=== PATIENT | female | born 1950 | race Hispanic/Latino ===

== ENCOUNTER 2018-11-23 14:05 | Emergency (ER) | payer MEDICARE, OTHER ==
[2018-11-23] MEDS ORDERED: SODIUM CHLORIDE 0.9% 1000ML 1,000 ML IV ONE (14:38)
[2018-11-23 14:44] LABS: APPEARANCE,URINE Clear (CLEAR); BILIRUBIN,URINE Negative (NEGATIVE); COLOR,URINE Yellow (YELLOW); GLUCOSE, URINE (UA) Negative (NEGATIVE); KETONES,URINE Negative (NEGATIVE); LEUKOCYTE ESTERASE ,URINE Small (NEGATIVE); NITRATE,URINE Negative (NEGATIVE); OCCULT BLOOD,URINE Small (NEGATIVE); PROTEIN,URINE POS 1+ mg/dL (NEGATIVE); UROBILINOGEN,URINE 0.2 mg/dL (0.2-1.0)
[2018-11-23 15:08] LABS: BACTERIA,URINE Few /HPF (None Seen); RBC,URINE None Seen /HPF (0-1)
[2018-11-23] MEDS ORDERED: LEVOFLOXACIN 500 MG/D5W 100 ML 100 ML ONE (15:26)
[2018-11-23 15:41] LABS: BASOPHILS % (AUTO) 0.4 % (0.0-5.0); EOSINOPHILS % (AUTO) 0.2 % (0.0-8.0); HEMATOCRIT 34.8 % (36-48); LYMPHOCYTES % (AUTO) 16.4 % (21.0-51.0); MEAN CORPUSCULAR HGB CONC 32.8 g/dL (32.0-36.0); MEAN CORPUSCULAR VOLUME 85.3 fL (79-99); MONOCYTES % (AUTO) 12.6 % (3.0-13.0); NEUTROPHILS % (AUTO) 70.4 % (40.0-77.0); PLATELET COUNT (AUTO) 189 K/uL (130-400); RED BLOOD CELL COUNT(AUTO) 4.07 MIL/uL (4.00-5.50); WHITE BLOOD COUNT (AUTO) 9.5 K/uL (4.8-10.8)
[2018-11-23 15:48] LABS: CREATININE 1.2 mg/dL (0.5-1.5); POTASSIUM 3.9 mmol/L (3.5-5.1)
== END 2018-11-23 16:09 | disposition home or self-care (01) ==
LOC: EDH 14:05
DX: N39.0 Urinary tract infection, site not specified (principal); E11.9 Type 2 diabetes mellitus without complications
CPT/HCPCS: 36415; 71045; 80048; 81001; 83605; 85025; 87040 ×2; 87077 ×2; 87088; 87186 ×2; 87804 ×2; 96365; 99285; J1956; J7030

== ENCOUNTER 2018-12-04 12:03 | Inpatient (IN) | payer MEDICARE, OTHER ==
[~2018-12-04] VITALS: Ht 167.6 cm; Wt 90.8 kg
[2018-12-04] MEDS ORDERED: LACTULOSE 20 GM/30 ML UDCUP PO PRN (13:30)
[2018-12-04] MEDS ORDERED: ONDANSETRON HCL 4 MG/2 ML VIAL IV PRN (13:30)
[2018-12-04] MEDS ORDERED: ACETAMINOPHEN 325 MG TAB PO PRN ×2 (13:30)
[2018-12-04] MEDS ORDERED: HYDRALAZINE HCL 20 MG/ML VIAL IV PRN (13:30)
[2018-12-04] MEDS ORDERED: SODIUM CHLORIDE 0.9% 100 ML IV ONE (14:47)
[2018-12-04] MEDS ORDERED: MEROPENEM 500 MG VIAL ONE (14:47)
[2018-12-04] MEDS ORDERED: SODIUM CHLORIDE 0.9% 1000ML 1,000 ML IV ONE ×2 (14:47→17:28)
[2018-12-04 15:04] LABS: APPEARANCE,URINE Clear (CLEAR); BILIRUBIN,URINE Negative (NEGATIVE); COLOR,URINE Yellow (YELLOW); GLUCOSE, URINE (UA) Negative (NEGATIVE); KETONES,URINE Negative (NEGATIVE); LEUKOCYTE ESTERASE ,URINE Small (NEGATIVE); NITRATE,URINE Negative (NEGATIVE); OCCULT BLOOD,URINE Negative (NEGATIVE); PROTEIN,URINE Negative (NEGATIVE); UROBILINOGEN,URINE 0.2 mg/dL (0.2-1.0)
[2018-12-04 15:19] LABS: BASOPHILS % (AUTO) 0.7 % (0.0-5.0); HEMATOCRIT 32.2 % (36-48); LYMPHOCYTES % (AUTO) 36.3 % (21.0-51.0); MEAN CORPUSCULAR HEMOGLOBIN 28.6 pg (27.0-33.0); MEAN CORPUSCULAR HGB CONC 33.1 g/dL (32.0-36.0); MEAN CORPUSCULAR VOLUME 86.4 fL (79-99); MONOCYTES % (AUTO) 9.3 % (3.0-13.0); NEUTROPHILS % (AUTO) 52.7 % (40.0-77.0); NUCLEATED RED BLOOD CELLS 0.1 % (0.0-0.19); PLATELET COUNT (AUTO) 369 K/uL (130-400); RED BLOOD CELL COUNT(AUTO) 3.72 MIL/uL (4.00-5.50); RED CELL DISTRIBUTION WIDTH 19.8 % (11.0-15.5); WHITE BLOOD COUNT (AUTO) 6.7 K/uL (4.8-10.8)
[2018-12-04 15:22] LABS: BACTERIA,URINE Rare /HPF (None Seen); RBC,URINE None Seen /HPF (0-1)
[2018-12-04 15:42] LABS: ALANINE AMINOTRANSFERASE 31 U/L (12-78); ALBUMIN 2.9 g/dL (3.5-5.0); ASPARTATE AMINOTRANSFERASE 38 U/L (10-37); BILIRUBIN,TOTAL 0.3 mg/dL (0.2-1.0); CARBON DIOXIDE 28 mmol/L (21-32); CHLORIDE 106 mmol/L (101-111); CREATINE KINASE, TOTAL 91 U/L (21-232); CREATININE 1.2 mg/dL (0.5-1.5); GLOMERULAR FILTR. RATE CALC 47 mL/min (>60); GLUCOSE,RANDOM 94 mg/dL (70-105); MYOGLOBIN 71 ng/mL (10-92); PHOSPHORUS 3.3 mg/dL (2.5-4.9); POTASSIUM 4.4 mmol/L (3.5-5.1); SODIUM SERUM 140 mmol/L (136-145); TOTAL PROTEIN, SERUM 7.1 g/dL (6.0-8.3); TROPONIN I < 0.04 ng/mL (0.00-0.06); UREA NITROGEN, BLOOD 24 mg/dL (7-18)
[2018-12-04 15:49] LABS: HEMOGLOBIN A1C 6.5 % (4.0-6.0)
[2018-12-04 16:29] LABS: ERYTHROCYTE SEDIMENTATION RATE 35 MM/HR (0-30)
[2018-12-04] MEDS: INSULIN HUMULIN R 100 UNIT/ML 3ML SQ SCH ×2 (21:00→22:00)
[2018-12-04] MEDS: FAMOTIDINE/PF 20 MG/2 ML VIAL IV SCH (21:00)
[2018-12-04] MEDS ORDERED: FAMOTIDINE/PF 20 MG/2 ML VIAL IV ONE (21:03)
[2018-12-04 21:30] VITALS: BP 129/74
[2018-12-04] MEDS: SODIUM CHLORIDE 0.9% 1000ML 1,000 ML IV SCH ×2 (22:00→22:44)
[2018-12-04] MEDS: MEROPENEM 500 MG VIAL IV SCH ×2 (22:00→22:43)
[2018-12-05] VITALS (7 sets, daily range): BP systolic 109–135; BP diastolic 51–73
[2018-12-05] MEDS: INSULIN HUMULIN R 100 UNIT/ML 3ML SQ SCH ×4 (06:29→21:00)
[2018-12-05] MEDS: MEROPENEM 500 MG VIAL IV SCH ×3 (06:34→22:03)
[2018-12-05] MEDS: FAMOTIDINE/PF 20 MG/2 ML VIAL IV SCH ×2 (09:09→22:02)
[2018-12-05] MEDS: ENOXAPARIN SODIUM 40 MG/0.4 ML SYRINGE SQ SCH (09:10)
[2018-12-05] MEDS: SODIUM CHLORIDE 0.9% 1000ML 1,000 ML IV SCH (09:29)
--- NOTE | 2018-12-05 12:24 | NUR ---
ELIZABETH Lacy met with pt and cousin. Pt states her cousin lives with her and brother Nicholas Roman is ER contact. Pt reports she is independent of all ADLS, has walker, and cane, no in home care services. Pt states doctor told her she was going somewhere else for 2weeks of antibiotics. pt states she does not want to go to a [place]. Sw informed CM who will follow up with pt for dcp. Addendum: 12/05/18 at 1228 by KATIE GONGORA Amended: Links added.
--- NOTE | 2018-12-05 16:09 | NUR ---
CM Note: [facility] pending acceptance CM met with pt discussed receverardo for short term placement pt will need abx iv, pt agreeable, CHARLA signed for [facility]. Faxed order, clinicals, and pasrr. Spoke to Mildred, will come eval pt. Pt pending acceptance, will need need to complete 3MN prior to transfer, will be safe to transver via [facility] transport van on Sat once accepted. Primary nurse aware. CM to cont to follow up.
[2018-12-06 04:20] VITALS: BP 111/63
[2018-12-06 05:11] LABS: BASOPHILS % (AUTO) 1.1 % (0.0-5.0); EOSINOPHILS % (AUTO) 1.4 % (0.0-8.0); HEMATOCRIT 33.5 % (36-48); LYMPHOCYTES % (AUTO) 40.5 % (21.0-51.0); MEAN CORPUSCULAR HEMOGLOBIN 28.8 pg (27.0-33.0); MEAN CORPUSCULAR HGB CONC 33.7 g/dL (32.0-36.0); MEAN CORPUSCULAR VOLUME 85.5 fL (79-99); MONOCYTES % (AUTO) 8.5 % (3.0-13.0); NEUTROPHILS % (AUTO) 48.5 % (40.0-77.0); PLATELET COUNT (AUTO) 380 K/uL (130-400); RED BLOOD CELL COUNT(AUTO) 3.92 MIL/uL (4.00-5.50); RED CELL DISTRIBUTION WIDTH 20.5 % (11.0-15.5)
[2018-12-06] MEDS ORDERED: LISI2.5T2 PO (05:15)
[2018-12-06] MEDS ORDERED: MONT10TA24 PO (05:15)
[2018-12-06] MEDS ORDERED: OMEP20CA10 PO (05:15)
[2018-12-06] MEDS ORDERED: DICL100T85 PO (05:15)
[2018-12-06 05:32] LABS: CREATININE 0.9 mg/dL (0.5-1.5)
[2018-12-06] MEDS: INSULIN HUMULIN R 100 UNIT/ML 3ML SQ SCH ×4 (05:33→21:00)
[2018-12-06] MEDS: MEROPENEM 500 MG VIAL IV SCH ×3 (05:50→20:18)
[2018-12-06 07:00] VITALS: BP 115/64
[2018-12-06] MEDS: LISINOPRIL 2.5 MG TABLET PO SCH (10:40)
[2018-12-06] MEDS: ENOXAPARIN SODIUM 40 MG/0.4 ML SYRINGE SQ SCH (10:40)
[2018-12-06] MEDS: MONTELUKAST SODIUM 10 MG TAB PO SCH (10:40)
[2018-12-06] MEDS: FAMOTIDINE/PF 20 MG/2 ML VIAL IV SCH ×2 (10:40→20:18)
[2018-12-06 11:00] VITALS: BP 123/59
[2018-12-06] MEDS: SODIUM CHLORIDE 0.9% 1000ML 1,000 ML IV SCH ×2 (13:00→22:55)
[2018-12-06 16:00] VITALS: BP 128/83
--- NOTE | 2018-12-06 16:06 | NUR ---
CM Note: [facility]: pending acceptance Spoke to Marilou ramon/[facility]. Received updated clinicals. Pt pending acceptance at this time. Aware pending to complete 3 MN tonight. Ok to transfer via [facility] transport van Sunday once accepted. Primary nurse aware. CM to cont to follow up.
--- NOTE | 2018-12-06 16:41 | NUR ---
CM Note: [facility] acceptance Spoke to Marilou ramon/[facility]. Pt has acceptance, need to complete 3rd MN tonight, ok to transfer tomorrow via [facility] transport van. Primary nurse aware. CM to cont to follow up.
[2018-12-06 19:45] VITALS: BP 140/61
[2018-12-06 23:44] VITALS: BP 115/65
[2018-12-07 03:40] VITALS: BP 119/66
[2018-12-07] MEDS: MEROPENEM 500 MG VIAL IV SCH (05:08)
[2018-12-07 05:13] LABS: BASOPHILS % (AUTO) 0.8 % (0.0-5.0); EOSINOPHILS % (AUTO) 0.8 % (0.0-8.0); HEMATOCRIT 31.3 % (36-48); LYMPHOCYTES % (AUTO) 29.7 % (21.0-51.0); MEAN CORPUSCULAR HGB CONC 34.2 g/dL (32.0-36.0); MEAN CORPUSCULAR VOLUME 84.6 fL (79-99); MONOCYTES % (AUTO) 9.2 % (3.0-13.0); NEUTROPHILS % (AUTO) 59.5 % (40.0-77.0); PLATELET COUNT (AUTO) 370 K/uL (130-400); RED CELL DISTRIBUTION WIDTH 20.1 % (11.0-15.5); WHITE BLOOD COUNT (AUTO) 7.1 K/uL (4.8-10.8)
[2018-12-07 05:24] LABS: CREATININE 0.9 mg/dL (0.5-1.5)
[2018-12-07 05:41] LABS: PARTIAL THROMBOPLASTIN TIME 28.3 SEC (26.3-35.5); PROTHROMBIN TIME 10.5 SEC (9.6-11.6)
[2018-12-07] MEDS: INSULIN HUMULIN R 100 UNIT/ML 3ML SQ SCH ×2 (06:43→11:30)
[2018-12-07 08:21] VITALS: BP 101/67
--- NOTE | 2018-12-07 10:00 | NUR ---
REJI AGUILAR: Spoke w Mildred this morning to discuss status of referral. She mentions that pt has been accepted and bed avail today. She also mentions that [facility] is able to insert PICC line at their facility as long as pt goes w order for insertion. Primary nurse/charge nurse and CHAIR PAD MAKER updated.
[2018-12-07 11:25] VITALS: BP 121/62
[2018-12-07] MEDS ORDERED: MEROPENEM 1 GM VIAL IVP SCH (11:45)
[2018-12-07] MEDS: MONTELUKAST SODIUM 10 MG TAB PO SCH (12:37)
[2018-12-07] MEDS: LISINOPRIL 2.5 MG TABLET PO SCH (12:37)
[2018-12-07] MEDS: ENOXAPARIN SODIUM 40 MG/0.4 ML SYRINGE SQ SCH (12:38)
[2018-12-07] MEDS: FAMOTIDINE/PF 20 MG/2 ML VIAL IV SCH (12:44)
--- NOTE | 2018-12-07 14:12 | NUR ---
report given to lisa mckenzie lvn of [facility]. all questions are answered patient is ready to be transfer.
== END 2018-12-07 15:00 | DRG 872 ==
LOC: EDH 12:03 → EDHIP 12:23 → 3CH 20:02
PROVIDERS: ADMIT Internal Medicine; ATTEND Internal Medicine
DX: A41.51 Sepsis due to Escherichia coli [E. coli] (principal); N39.0 Urinary tract infection, site not specified; E11.9 Type 2 diabetes mellitus without complications; I10 Essential (primary) hypertension; D64.9 Anemia, unspecified; E78.2 Mixed hyperlipidemia; J45.909 Unspecified asthma, uncomplicated; N20.0 Calculus of kidney; Z16.12 Extended spectrum beta lactamase (ESBL) resistance; Z16.24 Resistance to multiple antibiotics; Z96.653 Presence of artificial knee joint, bilateral; Z96.642 Presence of left artificial hip joint; Z83.3 Family history of diabetes mellitus
CPT/HCPCS: 36415; 76770; 80048; 80053; 81001; 82550; 82948; 83036; 83605; 83735; 83874; 84100; 84484; 85025; 85610; 85651; 85730; 86140; 87040; 87077; 87088; 87186; G0378; J1650; J2185; J3490; J7030

== ENCOUNTER → 2020-10-12 | Outpatient (CLI) | payer MEDICARE ==
[~2020-10-12] MED LIST: CETI10TA86 PO; DICL100T85 PO; LISI2.5T2 PO; METF-444 PO; MONT10TA32 PO; OMEP20CA12 PO
== END | disposition home or self-care (01) ==
LOC: RAH 09:26
PROVIDERS: ATTEND Family Medicine
DX: Z12.31 Encounter for screening mammogram for malignant neoplasm of breast (principal)
CPT/HCPCS: 77067

== ENCOUNTER 2021-02-19 16:21 | Emergency (ER) | payer MEDICARE ==
[~2021-02-19] VITALS: Ht 167.6 cm; Wt 100.7 kg
[~2021-02-19 16:21] MED LIST changes: +LISI2.5T13 PO; -LISI2.5T2 PO
[2021-02-19 16:33] VITALS: BP 138/54
[2021-02-19 17:33] VITALS: BP 130/69
[2021-02-19 18:08] LABS: BASOPHILS % (AUTO) 0.3 % (0.0-5.0); EOSINOPHILS % (AUTO) 0.1 % (0.0-8.0); LYMPHOCYTES % (AUTO) 6.1 % (21.0-51.0); MEAN CORPUSCULAR HEMOGLOBIN 31.4 pg (27.0-33.0); MEAN CORPUSCULAR HGB CONC 33.1 g/dL (32.0-36.0); MEAN CORPUSCULAR VOLUME 94.6 fL (79-99); MONOCYTES % (AUTO) 6.4 % (3.0-13.0); NEUTROPHILS % (AUTO) 86.6 % (40.0-77.0); PLATELET COUNT (AUTO) 175 K/uL (130-400); RED CELL DISTRIBUTION WIDTH 13.5 % (11.0-15.5); WHITE BLOOD COUNT (AUTO) 15.2 K/uL (4.8-10.8)
[2021-02-19 18:32] LABS: ALBUMIN 2.9 g/dL (3.5-5.0); BILIRUBIN,TOTAL 0.7 mg/dL (0.2-1.0); CREATININE 0.8 mg/dL (0.5-1.5); POTASSIUM 4.4 mmol/L (3.5-5.1); TOTAL PROTEIN, SERUM 6.5 g/dL (6.0-8.3)
[2021-02-19 19:48] VITALS: BP 118/52
[2021-02-19 20:19] LABS: APPEARANCE,URINE Clear (CLEAR); BILIRUBIN,URINE Negative (NEGATIVE); COLOR,URINE Yellow (YELLOW); GLUCOSE, URINE (UA) Negative (NEGATIVE); KETONES,URINE 40 mg/dL (NEGATIVE); LEUKOCYTE ESTERASE ,URINE Small (NEGATIVE); NITRATE,URINE Negative (NEGATIVE); OCCULT BLOOD,URINE Moderate (NEGATIVE); PH,URINE 5.5 (5.0-8.0); PROTEIN,URINE Negative (NEGATIVE); UROBILINOGEN,URINE 0.2 mg/dL (0.2-1.0)
[2021-02-19] MEDS ORDERED: CEFTRIAXONE 1G VIAL IVP ONE (20:30)
[2021-02-19] MEDS ORDERED: CEFTRIAXONE 1G VIAL ONE (20:39)
[2021-02-19 20:47] LABS: RBC,URINE 0-1 /HPF (0-1)
[2021-02-19 20:48] LABS: BACTERIA,URINE Moderate /HPF (None Seen); SQUAMOUS EPITHELIAL CELL,UR Few /HPF (0-2)
[2021-02-19 20:50] VITALS: BP 117/58
[2021-02-19] MEDS ORDERED: PHEN-847 PO (21:40)
[2021-02-19] MEDS ORDERED: CEFU500T67 PO (21:40)
[2021-02-19 21:45] VITALS: BP 111/49
== END 2021-02-19 22:20 | disposition home or self-care (01) ==
LOC: EDH 16:21
DX: N39.0 Urinary tract infection, site not specified (principal); Z20.822 Contact with and (suspected) exposure to COVID-19; E11.9 Type 2 diabetes mellitus without complications; E78.00 Pure hypercholesterolemia, unspecified; M19.90 Unspecified osteoarthritis, unspecified site; Z79.84 Long term (current) use of oral hypoglycemic drugs; Z79.899 Other long term (current) drug therapy; Z88.1 Allergy status to other antibiotic agents; Z98.84 Bariatric surgery status
CPT/HCPCS: 36415; 71045; 80053; 81001; 84484; 85025; 87077; 87088; 87186; 87635; 87804 ×2; 93005; 96374; 99285; C9803; J0696

== ENCOUNTER → 2023-05-10 | Outpatient (CLI) | payer MEDICARE ==
[~2023-05-10] MED LIST changes: +ALBU8.5H8 IH; +ASPI-1443 PO; +AZIT250T9 PO; +CEFD300C3 PO; -CETI10TA86 PO; +METH1POW MC; +METHI10 PO; +METO25 PO; +MONT-39 PO; -MONT10TA32 PO; -OMEP20CA12 PO; +PANT40TA PO; +PRED10TA3 PO; +PRED20TA3 PO; +SERT-438 PO
== END | disposition home or self-care (01) ==
LOC: RAH 08:08
PROVIDERS: ATTEND Family Medicine
DX: Z12.31 Encounter for screening mammogram for malignant neoplasm of breast (principal)
CPT/HCPCS: 77067

== ENCOUNTER 2023-12-06 04:02 | Emergency (ER) | payer MEDICARE ==
[~2023-12-06] VITALS: Ht 165.1 cm; Wt 93.0 kg
[2023-12-06 04:27] LABS: BASOPHILS # (AUTO) 0.01 K/uL (0.00-0.20); BASOPHILS % (AUTO) 0.1 % (0.0-5.0); HEMATOCRIT 41.5 % (36-48); IMMATURE GRANULOCYTE ABSOLUTE 0.05 K/uL (0-1); LYMPHOCYTES # (AUTO) 0.8 K/uL (1.0-4.8); LYMPHOCYTES % (AUTO) 7.5 % (21.0-51.0); MEAN CORPUSCULAR HEMOGLOBIN 31.1 pg (27.0-33.0); MEAN CORPUSCULAR HGB CONC 33.5 g/dL (32.0-36.0); MEAN CORPUSCULAR VOLUME 92.8 fL (79-99); MONOCYTES # (AUTO) 0.7 K/uL (0.1-1.0); MONOCYTES % (AUTO) 6.2 % (3.0-13.0); NEUTROPHILS # (AUTO) 9.5 K/uL (1.8-7.7); NEUTROPHILS % (AUTO) 85.7 % (40.0-77.0); PLATELET COUNT (AUTO) 124 K/uL (130-400); RED BLOOD CELL COUNT(AUTO) 4.47 MIL/uL (4.00-5.50); RED CELL DISTRIBUTION WIDTH 14.7 % (11.0-15.5); WHITE BLOOD COUNT (AUTO) 11.1 K/uL (4.8-10.8)
[2023-12-06 04:35] LABS: RAPID GROUP A STREP negative (NEGATIVE)
[2023-12-06 04:39] LABS: SARS-CoV-2, RNA, NAAT NEGATIVE SARS CoV-2 (NEGATIVE)
[2023-12-06 04:43] LABS: CREATININE 1.3 mg/dL (0.5-1.0); INFLUENZA TYPE A Negative For Type A (NEGATIVE); INFLUENZA TYPE B Negative For Type B (NEGATIVE); POTASSIUM 3.8 mmol/L (3.5-5.1)
[2023-12-06 04:48] LABS: INR 1.04 (0.85-1.15)
[2023-12-06 04:51] LABS: ALBUMIN 3.3 g/dL (3.5-5.0); BILIRUBIN,TOTAL 1.1 mg/dL (0.2-1.0); TOTAL PROTEIN, SERUM 7.1 g/dL (6.0-8.3)
[2023-12-06] MEDS: 0.9%NACL 1000ML 1,000 ML IV ONE (06:13)
[2023-12-06 06:24] VITALS: BP 121/85; PULSE 85; RESP 19; O2SAT 98
[2023-12-06 06:27] LABS: BILIRUBIN,URINE NEGATIVE (NEGATIVE); COLOR,URINE YELLOW (YELLOW); GLUCOSE, URINE (UA) NEGATIVE (NEGATIVE); KETONES,URINE 10 mg/dL (NEGATIVE); LEUKOCYTE ESTERASE ,URINE 500 Leu/uL (NEGATIVE); NITRATE,URINE 2+ (NEGATIVE); OCCULT BLOOD,URINE SMALL (NEGATIVE); PH,URINE 5.5 (5.0-8.0); PROTEIN,URINE 20 mg/dL (NEGATIVE); UROBILINOGEN,URINE 0.2 mg/dL (0.2-1.0)
[2023-12-06 06:31] LABS: ADD UA MICROSCOPIC YES; APPEARANCE,URINE SLIGHTLY CLOUDY (CLEAR)
[2023-12-06 06:34] LABS: BACTERIA,URINE MANY /HPF (None Seen); MUCUS,URINE RARE LPF (None Seen); SQUAMOUS EPITHELIAL CELL,UR RARE /HPF (0-2); WBC,URINE 51-100 /HPF (0-1)
[2023-12-06] MEDS ORDERED: CEPH500B PO (06:37)
[2023-12-07] MEDS ORDERED: OXYB-66 PO (04:42)
[2023-12-07] MEDS ORDERED: MULT-1367 PO (04:42)
[2023-12-07] MEDS ORDERED: CALC-877 PO (04:42)
[2023-12-07] MEDS ORDERED: BENZ200C53 PO (04:42)
[2023-12-07] MEDS ORDERED: BIOT10005 PO (04:42)
[2023-12-07] MEDS ORDERED: ACET-2743 PO (04:42)
[2023-12-07] MEDS ORDERED: INSLAN SQ (04:42)
[2023-12-07] MEDS ORDERED: ERGO500093 PO (04:42)
[2023-12-07] MEDS ORDERED: ASCO100031 PO (04:42)
[2023-12-07] MEDS ORDERED: DOXY100C5 PO (04:42)
[2023-12-10] MEDS ORDERED: SULF1TAB42 PO (10:04)
== END 2023-12-06 06:56 | disposition home or self-care (01) ==
LOC: EDH 04:02
DX: N39.0 Urinary tract infection, site not specified (principal); E86.0 Dehydration; E11.9 Type 2 diabetes mellitus without complications; D64.9 Anemia, unspecified; Z20.822 Contact with and (suspected) exposure to COVID-19; Z79.82 Long term (current) use of aspirin; Z79.84 Long term (current) use of oral hypoglycemic drugs; Z79.899 Other long term (current) drug therapy; Z98.890 Other specified postprocedural states; Z88.1 Allergy status to other antibiotic agents
CPT/HCPCS: 99285; 76705; 71045; 87635; 82150; 82550; 84484; 80053; 83880; 83690; 85025; 85610; 87086 ×3; 87186 ×2; 87880; 87804 ×2; 81001; 36415; 93005; J7030

== ENCOUNTER → 2024-01-14 | Outpatient (CLI) | payer MEDICARE ==
[~2024-01-14] MED LIST changes: +ACET-2743 PO; +ASCO100031 PO; -AZIT250T9 PO; +BENZ200C53 PO; +BIOT10005 PO; +CALC-877 PO; -CEFD300C3 PO; +ERGO500093 PO; +INSLAN SQ; -METF-444 PO; -METH1POW MC; -METHI10 PO; -METO25 PO; +MULT-1367 PO; +OXYB-66 PO; -PANT40TA PO; -PRED10TA3 PO; -PRED20TA3 PO; +SULF1TAB42 PO
== END | disposition home or self-care (01) ==
LOC: RAH 14:17
PROVIDERS: ATTEND Family Medicine
DX: I35.0 Nonrheumatic aortic (valve) stenosis (principal); R01.1 Cardiac murmur, unspecified
CPT/HCPCS: 93306

== ENCOUNTER 2024-05-19 10:41 | Emergency (ER) | payer MEDICARE, OTHER ==
[~2024-05-19] VITALS: Ht 165.1 cm; Wt 89.8 kg
--- NOTE | 2024-05-19 12:07 | HMCIMG ---
RIBS UNI RT W PA CHEST 3+ VWS REASON: Fall, pain TECHNIQUE: 5 views were obtained. FINDINGS: PA chest x-ray shows clear lungs. Heart, mediastinum and bony thorax appear normal. Right rib series images show normal findings. There are no fractures. Soft tissues appear unremarkable. IMPRESSION: 1. Negative PA chest x-ray with prior series.
--- NOTE | 2024-05-19 12:08 | HMCIMG ---
Exam: AP pelvis and right hip 3 views. Reason: Pain, trauma. FINDINGS: AP pelvis shows normal findings. There are no pelvic bone fractures. There is a total hip joint prosthesis on the left. Additional views show normal appearance of the proximal right femur. Joint space appears preserved. IMPRESSION: 1. No acute finding on AP pelvis and right hip views.
--- NOTE | 2024-05-19 12:09 | HMCIMG ---
FEMUR 2VW RIGHT REASON: Fall, pain TECHNIQUE: 4 views were obtained. FINDINGS: There is no evidence of fracture or dislocation. There is no joint effusion. The soft tissues appear unremarkable. There is no evidence of a radiopaque foreign body. There is a right total knee joint prosthesis in place, hardware appears intact. IMPRESSION: No acute findings.
[2024-05-19] MEDS: morPHINE 2 MG SYG IM ONE (13:40)
--- NOTE | 2024-05-19 13:55 | NUR ---
per aida Doherty there is no need for blood collection as pt does not wish to be admitted to the hospital today
--- NOTE | 2024-05-19 14:22 | ERN ---
General Chief Complaint: Mechanical Fall Stated Complaint: RIGHT RIBS, RT HIP PAIN, FALL Time Seen by MD: 10:47 Time Seen by Midlevel: 10:47 Source: patient History of Present Illness Allergies: Coded Allergies: levofloxacin (Unverified Allergy, Unknown, 12/04/18) Home Meds Active Scripts Sulfamethoxazole/Trimethoprim (Bactrim Ds Tablet) 800 Mg-160 Mg Tablet, 1 TAB PO DAILY for 7 Days, #7 TAB Prov:GABRIELLA MORE [employer] 12/10/23 Reported Medications Biotin (Biotin) 10,000 Mcg Capsule, 43684 MCG PO AM, CAP 12/07/23 Calcium Carbonate/Vitamin D3 (Calcium 500 + D Tablet) 500 Mg Calcium-10 Mcg (400 Unit) Tablet, 1 EACH PO BID, TAB 12/07/23 Multivitamin (Multivitamin) 1 Each Tablet, 1 EACH PO AM, TAB 12/07/23 Insulin Glargine,Hum.rec.anlog (Lantus) 100 Unit/Ml Inj, 12 UNITS SQ AM, ML 12/07/23 Acetaminophen (Tylenol Extra Strength) 500 Mg Tablet, 1000 MG PO Q6HPRN PRN for PAIN LEVEL 4 TO 6, TAB 12/07/23 Benzonatate (Benzonatate) 200 Mg Capsule, 200 MG PO TIDP PRN for COUGH, CAP 12/07/23 Ergocalciferol (Vitamin D2) (Vitamin D2) 1,250 Mcg (24659 Unit) Capsule, 1250 MCG PO AD, CAP 12/07/23 Oxybutynin Chloride (Oxybutynin Chloride ER) 5 Mg Tab.er.24, 5 MG PO HS 12/07/23 Ascorbic Acid (Vitamin C) 1,000 Mg Tablet, 1000 MG PO AM, TAB 12/07/23 Sertraline HCl (Sertraline HCl) 25 Mg Tablet, 25 MG PO DAILY, TAB 09/02/21 Albuterol Sulfate (Proair Hfa) 8.5 Gm Hfa.aer.ad, 2 PUFF IH AD 09/02/21 Aspirin (Aspirin EC) 81 Mg Tablet.dr, 81 MG PO DAILY, TAB 09/02/21 Diclofenac Sodium (Diclofenac Sodium) 100 Mg Tab.er.24h, 100 MG PO DAILY, TAB 09/02/21 Lisinopril (Lisinopril) 2.5 Mg Tablet, 2.5 MG PO DAILY, TAB 09/02/21 Montelukast Sodium (Montelukast Sodium) 10 Mg Tablet, 10 MG PO HS, TAB 09/02/21 Past Medical History Past Medical History: Anemia, Diabetes-Type II Past Surgical History: Cholecystectomy, Other, Bariatric Surgery Surgical History Other: LEFT HIP SX ED Course Orders Procedure Category Date Status Time Femur 2vw Right RAD 05/19/24 Resulted 11:21 Ribs Uni Rt W Pa RAD 05/19/24 Resulted Chest 3+ Vws 11:21 Hip Unilat 2-3vw Right RAD 05/19/24 Resulted 11:21 Morphine 2mg Syg PHA 05/19/24 Complete (Morphine 2mg Syg) 13:30 Current Medications Medications (Trade) Dose Ordered Sig/Saeid Route PRN Reason Start Time Stop Time Status Last Admin Dose Admin Morphine Sulfate (morPHINE 2MG SYG) 2 mg ONCE ONCE IM 05/19/24 13:30 05/19/24 13:31 DC 05/19/24 13:40 Vital Signs Date Time Temp Pulse Resp B/P (MAP) Pulse Ox O2 Delivery O2 Flow Rate FiO2 05/19/24 14:19 97.9 78 18 128/59 99 Room Air* 0 21 05/19/24 13:13 78 18 129/54 98 Room Air* 0 21 05/19/24 10:42 97.9 67 16 120/66 99 Room Air 0 DX & DISP Disposition: Discharge Departure Impression: Primary Impression: Rib contusion Additional Impression: Thigh contusion Condition: Stable Scripts Benzonatate (Tessalon Perles) 100 Mg Cap 100 MG PO TID for cough for 5 Days, #15 CAP 0 Refills Prov: TITUS CONWAY 05/19/24 Additional Instructions: Discharge home. Rest. Follow up with primary care in 24 hours. Return to the ER for any acute changes or worsening symptoms. If any medications were prescribed take as directed. Okay to continue home med ications unless otherwise discussed during your visit in the emergency room today. Patient was also advised to follow-up with primary care physician in 1 to 2 days for continued monitoring. Referrals: RICKEY CHAVEZ MD (PCP) I participated in the following activities of this patient's care: For this patient encounter, I reviewed the PA or ELECTRICAL DISCHARGE MACHINE OPERATOR documentation, treatment plan, and medical decision making. I did not have [id number] time with this patient. I will sign as the reviewing DrJosephine And agree with the treatment plan and disposition. TITUS CONWAY May 19, 2024 14:22
[2024-05-19] MEDS ORDERED: BENZ-39 PO (14:28)
[2024-05-19 14:41] VITALS: BP 135/59; PULSE 78; RESP 18; TEMP 97.9; O2SAT 99
== END 2024-05-19 14:46 | disposition home or self-care (01) ==
LOC: EDH 10:41
DX: S20.211A Contusion of right front wall of thorax, initial encounter (principal); S70.11XA Contusion of right thigh, initial encounter; E11.9 Type 2 diabetes mellitus without complications; Z79.82 Long term (current) use of aspirin; Z79.899 Other long term (current) drug therapy; Z88.1 Allergy status to other antibiotic agents; Z90.49 Acquired absence of other specified parts of digestive tract; W18.39XA Other fall on same level, initial encounter; Y93.89 Activity, other specified; Y92.89 Other specified places as the place of occurrence of the external cause; Y99.8 Other external cause status
CPT/HCPCS: 99284; 73502; 73552; 71101; 96372; J2270

== ENCOUNTER 2025-03-22 16:33 | Emergency (ER) | payer MEDICARE, OTHER ==
[~2025-03-22] VITALS: Ht 165.1 cm; Wt 89.8 kg
[~2025-03-22 16:33] MED LIST changes: -ASCO100031 PO; +ASCO10004 PO; +BENZ-39 PO; -DICL100T85 PO; +DICL100T97 PO
[2025-03-22 16:54] LABS: APPEARANCE,URINE CLEAR (CLEAR); GLUCOSE, URINE (UA) NEGATIVE (NEGATIVE); LEUKOCYTE ESTERASE ,URINE NEGATIVE Leu/uL (NEGATIVE); NITRATE,URINE NEGATIVE (NEGATIVE); OCCULT BLOOD,URINE NEGATIVE (NEGATIVE)
[2025-03-22 16:54] LABS: IMMATURE GRANULOCYTE ABSOLUTE 0.01 K/uL (0-1); NUCLEATED RED BLOOD CELLS 0.0 % (0.0-0.19); PLATELET COUNT (AUTO) 188 K/uL (130-400); RED BLOOD CELL COUNT(AUTO) 4.20 MIL/uL (4.00-5.50); RED CELL DISTRIBUTION WIDTH 21.8 % (11.0-15.5); WHITE BLOOD COUNT (AUTO) 5.3 K/uL (4.8-10.8)
[2025-03-22 16:55] LABS: ADD UA MICROSCOPIC NO
[2025-03-22 17:01] LABS: CREATININE 1.1 mg/dL (0.5-1.0); GLOMERULAR FILTR. RATE CALC 52.0 mL/min (>90); GLUCOSE,RANDOM 144.0 mg/dL (70-105); SODIUM SERUM 140.0 mmol/L (136-145); UREA NITROGEN, BLOOD 21.0 mg/dL (7-18)
[2025-03-22 17:11] LABS: CREATINE KINASE, TOTAL 301.0 U/L (21-232)
--- NOTE | 2025-03-22 17:45 | HMCIMG ---
EXAM: CR Chest, 1 View. CLINICAL HISTORY: cp COMPARISON: None provided. FINDINGS: LUNGS: There is no mass, infiltrate, or acute pulmonary abnormality. PLEURAL SPACES: No pleural effusion or pneumothorax. MEDIASTINUM: The cardiomediastinal silhouette is within normal limits. BONES: No aggressive appearing osseous lesion seen. IMPRESSION: No acute cardiopulmonary pathology is evident. /[place]
--- NOTE | 2025-03-22 18:37 | ERN ---
General Chief Complaint: Chest Pain Stated Complaint: CHEST PAIN Time Seen by MD: 16:36 Time Seen by Midlevel: 16:36 Source: patient History of Present Illness Initial Comments 74-year-old female with a past medical history of type 2 diabetes presents to the emergency department for evaluation of chest pain that started a proximally 3 hours ago. She reports taking one nitroglycerin sublingual with resolution of symptoms. Upon arrival to the emergency department she no longer has chest pain. Denies any other symptoms Allergies: Coded Allergies: levofloxacin (Unverified Allergy, Unknown, 12/04/18) Home Meds Active Scripts Benzonatate (Tessalon Perles) 100 Mg Cap, 100 MG PO TID for cough for 5 Days, #15 CAP 0 Refills Prov:TITUS CONWAY PAC 05/19/24 Sulfamethoxazole/Trimethoprim (Bactrim Ds Tablet) 800 Mg-160 Mg Tablet, 1 TAB PO DAILY for 7 Days, #7 TAB Prov:GABRIELLA MOER VAULT ATTENDANT 12/10/23 Reported Medications Biotin (Biotin) 10,000 Mcg Capsule, 67254 MCG PO AM, CAP 12/07/23 Calcium Carbonate/Vitamin D3 (Calcium 500 + D Tablet) 500 Mg Calcium-10 Mcg (400 Unit) Tablet, 1 EACH PO BID, TAB 12/07/23 Multivitamin (Multivitamin) 1 Each Tablet, 1 EACH PO AM, TAB 12/07/23 Insulin Glargine,Hum.rec.anlog (Lantus) 100 Unit/Ml Inj, 12 UNITS SQ AM, ML 12/07/23 Acetaminophen (Tylenol Extra Strength) 500 Mg Tablet, 1000 MG PO Q6HPRN PRN for PAIN LEVEL 4 TO 6, TAB 12/07/23 Benzonatate (Benzonatate) 200 Mg Capsule, 200 MG PO TIDP PRN for COUGH, CAP 12/07/23 Ergocalciferol (Vitamin D2) (Vitamin D2) 1,250 Mcg (82002 Unit) Capsule, 1250 MCG PO AD, CAP 12/07/23 Oxybutynin Chloride (Oxybutynin Chloride ER) 5 Mg Tab.er.24, 5 MG PO HS 12/07/23 Ascorbic Acid (Vitamin C) 1,000 Mg Tablet, 1000 MG PO AM, TAB 12/07/23 Sertraline HCl (Sertraline HCl) 25 Mg Tablet, 25 MG PO DAILY, TAB 09/02/21 Albuterol Sulfate (Proair Hfa) 8.5 Gm Hfa.aer.ad, 2 PUFF IH AD 09/02/21 Aspirin (Aspirin EC) 81 Mg Tablet.dr, 81 MG PO DAILY, TAB 09/02/21 Diclofenac Sodium (Diclofenac Sodium) 100 Mg Tab.er.24h, 100 MG PO DAILY, TAB 09/02/21 Lisinopril (Lisinopril) 2.5 Mg Tablet, 2.5 MG PO DAILY, TAB 09/02/21 Montelukast Sodium (Montelukast Sodium) 10 Mg Tablet, 10 MG PO HS, TAB 09/02/21 Past Medical History Past Medical History: Arthritis, Asthma, Diabetes-Type II, GERD, Hypertension Past Surgical History: Other Surgical History Other: L HIP REPLACEMENT, BILATERAL KNEE REPLACEMENTS ROS Dictation CONSTITUTIONAL: Negative except for HPI HEAD/FACE: Negative except for HPI EENT: Negative except for HPI RESPIRATORY: Negative except for HPI GASTROINTESTINAL/ABDOMINAL: Negative except for HPI GENITOURINARY: Negative except for HPI MUSCULOSKELETAL: Negative except for HPI INTEGUMENTARY: Negative except for HPI NEUROLOGICAL/PSYCH: Negative except for HPI HEMATOLOGIC/LYMPHATIC: Negative except for HPI All Systems Negative, Except as noted above. 13 point review of systems assessed and all negative except for above. Physical Exam Physical Exam Dictation Vital Signs reviewed General Appearance: Alert, oriented x 3, no acute distress, well developed, nourished. Head and Face: non-traumatic. Eyes: PERRL, pink conjunctivas, eyelid no trauma, anterior chamber with arcus senilis. Ears: Pinnas intact and no signs of trauma or erythema ear canals clear and no discharge TM no erythema Nose: No discharge, no bleeding. Oropharynx: Mouth normal, tongue pink, pharynx clear,no erythema, tonsils no exudates, no abscesses noted, mucous membrane moist Neck: Supple, non-tender, no thyromegaly, no masses, no JVD, no bruits Breast:Deferred Chest:No tenderness, no crepitus, no paradoxical movement, no retractions Lungs:Clear, well-ventilated, symmetric, no rales, no wheezing, no rhonchi, no stridor, good breath sounds bilaterally Heart: Regular rate, regular rhythm, no murmur, no gallops Vascular: no peripheral edema, Abdomen: Soft, positive bowel sounds, nondistended, no guarding, nontender, no rebound, no masses no hepatomegaly, no splenomegaly, no Tang's sign, no hernias. Rectal: Deferred Genital: Deferred Neurological: Normal speech, motor function intact, sensory function intact Musculoskeletal: Neck nontender, full range of motion, back nontender, full range of motion, Extremities: nontender, full range of motion Skin: Color pink, dry, no turgor, no rash, no lacerations, no abrasions, no contusions. Lymphatic: Deferred Results Laboratory and Microbiology Lab and Micro Result Laboratory Tests Test 03/22/25 16:40 03/22/25 16:49 03/22/25 18:08 Urine Color LIGHT-YELLOW (YELLOW) Urine Appearance CLEAR (CLEAR) Urine pH 6.0 (5.0-8.0) Urine Specific [place] 1.008 (1.001-1.031) Urine Protein NEGATIVE mg/dL (NEGATIVE) Urine Glucose (UA) NEGATIVE mg/dL (NEGATIVE) Urine Ketones NEGATIVE mg/dL (NEGATIVE) Urine Occult Blood NEGATIVE (NEGATIVE) Urine Nitrate NEGATIVE (NEGATIVE) Urine Bilirubin NEGATIVE mg/dL (NEGATIVE) Urine Urobilinogen 0.2 mg/dL (0.2-1.0) Urine Leukocyte Esterase NEGATIVE Ekn/uL White Blood Count 5.3 K/uL (4.8-10.8) Red Blood Count 4.20 MIL/uL (4.00-5.50) Hemoglobin 10.9 g/dL (12.0-16.0) L Hematocrit 34.9 % (36-48) L Mean Corpuscular Volume 83.1 fL (79-99) Mean Corpuscular Hemoglobin 26.0 pg (27.0-33.0) L Mean Corpuscular Hemoglobin Concent 31.2 g/dL (32.0-36.0) L Red Cell Distribution Width 21.8 % (11.0-15.5) H Platelet Count 188 K/uL (130-400) Mean Platelet Volume 9.9 fL (7.5-10.5) Immature Granulocyte % (Auto) 0.2 % (0-1) Neutrophils (%) (Auto) 40.6 % (40.0-77.0) Lymphocytes (%) (Auto) 47.4 % (21.0-51.0) Monocytes (%) (Auto) 9.7 % (3.0-13.0) Eosinophils (%) (Auto) 1.5 % (0.0-8.0) Basophils (%) (Auto) 0.6 % (0.0-5.0) Neutrophils # (Auto) 2.1 K/uL (1.8-7.7) Lymphocytes # (Auto) 2.5 K/uL (1.0-4.8) Monocytes # (Auto) 0.5 K/uL (0.1-1.0) Eosinophils # (Auto) 0.08 K/uL (0.00-0.70) Basophils # (Auto) 0.03 K/uL (0.00-0.20) Absolute Immature Granulocyte (auto 0.01 K/uL (0-1) Nucleated Red Blood Cells 0.0 % (0.0-0.19) Red Blood Cell Morphology See comments Sodium Level 140 mmol/L (136-145) Potassium Level 4.5 mmol/L (3.5-5.1) Chloride Level 104 mmol/L (101-111) Carbon Dioxide Level 28 mmol/L (21-32) Blood Urea Nitrogen 21 mg/dL (7-18) H Creatinine 1.1 mg/dL (0.5-1.0) H Glomerular Filtration Rate Calc 52 mL/min (>90) Random Glucose 144 mg/dL (70-105) H Total Calcium 8.5 mg/dL (8.5-10.1) Magnesium Level 2.10 mg/dL (1.80-2.40) Total Creatine Kinase 301 U/L (21-232) H Troponin I High Sensitivity 5 ng/L (4-50) 6 ng/L (4-50) Labs Reviewed?: Yes MDM MDM: 74-year-old female with a past medical history of type 2 diabetes presents to the emergency department for evaluation of chest pain that started a proximally 3 hours ago. She reports taking one nitroglycerin sublingual with resolution of symptoms. Upon arrival to the emergency department she no longer has chest pain. Denies any other symptoms On physical examination the patient is in no acute distress. Initial vital signs are stable. Patient is afebrile and nontoxic appearing. Physical examination is unremarkable. CBC shows no leukocytosis. Chemistries are stable. Two sets of troponins are negative. Chest x-ray shows no acute cardiopulmonary process. EKG shows normal sinus rhythm with a ventricular rate of71 beats per minute. No acute ischemic changes noted. Patient has a low risk for an acute coronary syndrome based on her heart score at this time. We will discharged home with a diagnosis of noncardiac chest pain. Differential diagnosis: Acute coronary syndrome, pneumonia, pleural effusion There are no social concerns with this patient. Prescription drug management Prescriptions will include: None Medical management and examination interpretation discussions were had by me with other qualified healthcare professionals as indicated for the patient's care. ED Course Orders Procedure Category Date Status Time Cbc With Differential LAB 03/22/25 Complete 16:40 Chest 1vw RAD 03/22/25 Resulted 16:40 12 Lead Ekg Tracing- EKG 03/22/25 Logged Technical 16:40 Magnesium LAB 03/22/25 Complete 16:40 Creatine Kinase, Total LAB 03/22/25 Complete 16:40 Troponin I High LAB 03/22/25 Complete Sensitivity 16:40 Urinalysis Profile LAB 03/22/25 Complete 16:40 Basic Metabolic Panel LAB 03/22/25 Complete 16:40 Troponin I High LAB 03/22/25 Complete Sensitivity 18:01 Vital Signs Date Time Temp Pulse Resp B/P (MAP) Pulse Ox O2 Delivery O2 Flow Rate FiO2 03/22/25 17:17 97.9 69 16 100/48 100 Room Air* 0 21 03/22/25 16:33 97.9 70 18 136/61 97 Room Air 0 DX & DISP Disposition: Discharge Departure Impression: Primary Impression: Non-cardiac chest pain Condition: Stable Additional Instructions: Your blood work today is unremarkable. Your EKG does not show any evidence of a heart attack. Your chest x-ray is normal. Your two sets of cardiac enzymes are negative. Referrals: RICKEY CHAVEZ MD (PCP) I have reviewed the case, and I agree with, Diagnosis and Plan I performed the substantive portion of the visit. I have reviewed and personally made and approve the management plan that is documented in the note by myself or the HAIM. I acknowledge for responsibility for the patient's management plan. ALANA CRUZ PAC Mar 22, 2025 18:37
[2025-03-22 19:07] VITALS: BP 127/57; PULSE 64; RESP 16; TEMP 97.9; O2SAT 98
--- NOTE | 2025-03-23 02:40 | EKG ---
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
== END 2025-03-22 19:18 | disposition home or self-care (01) ==
LOC: EDH 16:33
DX: R07.89 Other chest pain (principal); E11.9 Type 2 diabetes mellitus without complications; I10 Essential (primary) hypertension; J45.909 Unspecified asthma, uncomplicated; M19.90 Unspecified osteoarthritis, unspecified site; K21.9 Gastro-esophageal reflux disease without esophagitis; Z88.1 Allergy status to other antibiotic agents; Z79.899 Other long term (current) drug therapy; Z79.82 Long term (current) use of aspirin; Z96.642 Presence of left artificial hip joint; Z96.653 Presence of artificial knee joint, bilateral
CPT/HCPCS: 36415; 71045; 80048; 81003; 82550; 83735; 84484; 85025; 93005; 99285